=== PATIENT | male | born 1955 | race Caucasian/White ===

== ENCOUNTER → 2018-09-27 | Outpatient (CLI) | payer MEDICAID ==
[2018-09-27 11:57] LABS: CLARITY,URINE CLEAR; COLOR,URINE YELLOW; GLUCOSE, URINE (UA) NEGATIVE (NEGATIVE); PH,URINE 5.5 (5-9); PROTEIN,URINE NEGATIVE (NEGATIVE)
[2018-09-27 11:58] LABS: BACTERIA,URINE NEGATIVE /HPF; BILIRUBIN,URINE NEGATIVE (NEGATIVE); KETONES,URINE NEGATIVE (NEGATIVE); LEUKOCYTE ESTERASE ,URINE NEGATIVE (NEGATIVE); NITRITE,URINE NEGATIVE (NEGATIVE); RBC,URINE RARE /HPF; SQUAMOUS EPITHELIAL CELL,UR RARE /HPF; UROBILINOGEN,URINE 0.2 MG/DL (NORMAL)
[2018-09-27 15:21] LABS: BUN/CREATININE RATIO 12; CALCIUM 8.8 MG/DL (8.5-10.1); CARBON DIOXIDE 27 MMOL/L (21-32); CHLORIDE 100 MMOL/L (98-107); GFR ESTIMATED > 60; GLUCOSE 114 MG/DL (70-105); POTASSIUM 4.1 MMOL/L (3.6-5.0); SODIUM 135 MMOL/L (135-145)
== END ==
LOC: LAB FS 09:41
PROVIDERS: ATTEND Urology
DX: N40.0 Benign prostatic hyperplasia without lower urinary tract symptoms (principal)
CPT/HCPCS: 36415; 80048; 81000; 84153; 84403

== ENCOUNTER 2018-10-18 11:04 | Emergency (ER) | payer MEDICAID ==
[~2018-10-18] VITALS: Ht 177.8 cm; Wt 88.5 kg
--- OUTSIDE RECORDS SUMMARY | 2018-10-18 11:09 | XMS REPORT | Continuity of Care Document ---
Author Organization Unknown Address Unknown Phone Unavailable Allergies Active Description Code Type Severity Reaction Onset Reported/Identified Relationship to Patient Clinical Status Yes NO KNOWN DRUG ALLERGIES UNKNOWN NO KNOWN DRUG ALLERG Medications Medication Packaging Start Date Stop Date Route Dosage Sig NORMAL SALINE 1000CC IV BAG INJ 0.9 % (NS 1000CC IV BAG) ml 09/22/2016 10/07/2016 CONTINUOUSEVERY 0 Hour CEFAZOLIN VIAL INJ 1 GM (ANCEF) GM 09/22/2016 09/22/2016 ONCE&0730 HYDRALAZINE 1CC VIAL INJ 20 MG/CC (APRESOLINE 1CC VIAL) MG 09/22/2016 09/22/2016 ONCE&0735 HYDROCODONE/APAP 7.5/325 TAB (JERSON-TAB 7.5/325) TAB 09/22/2016 09/22/2016 PRN ONCE Problems Date Dx Coded Attending Type Code Diagnosis Diagnosed By 09/22/2016 ALAYNA BRIGGS 717.3 OTHER AND UNSPECIFIED DERANGEMENT OF MEDIAL MENISCUS 09/22/2016 ALAYNA BRIGGS 717.40 DERANGEMENT OF LATERAL MENISCUS, UNSPECIFIED 09/22/2016 ALAYNA BRIGGS 727.00 SYNOVITIS AND TENOSYNOVITIS, UNSPECIFIED 09/22/2016 ALAYNA BRIGGS M23.201 DERANGEMENT OF UNSP LAT MENSC DUE TO OLD TEAR/INJ, LEFT KNEE 09/22/2016 ALAYNA BRIGGS M23.204 DERANG OF UNSP MEDIAL MENISCUS DUE TO OLD TEAR/INJ, L KNEE 09/22/2016 ALAYNA BRIGGS M65.9 SYNOVITIS AND TENOSYNOVITIS, UNSPECIFIED Procedures There is no data. Results There is no data. Encounters ACCT No. Visit Date/Time Discharge Status Pt. Type Provider Facility Loc./Unit Complaint [id number] 07/04/2018 09:45:00 07/04/2018 23:59:00 DIS Outpatient ALAYNA BRIGGS [id number] 09/22/2016 00:00:00 09/22/2016 09:25:00 DIS Outpatient ALAYNA BRIGGS [id number] 08/11/2016 00:00:00 08/11/2016 00:00:00 CAN Outpatient ALAYNA BRIGGS [id number] 09/22/2016 07:08:23 Document Registration
[2018-10-18] MEDS ORDERED: NS IV 1000 ML 1,000 ML IV SCH (11:17)
[2018-10-18 11:38] LABS: HEMATOCRIT 41 % (40-54); HEMOGLOBIN 14.1 G/DL (13.3-17.7); MEAN CORPUSCULAR HEMOGLOBIN 29 PG (25-34); MEAN CORPUSCULAR HGB CONC 35 G/DL (32-36); MEAN CORPUSCULAR VOLUME 85 FL (80-99); MEAN PLATELET VOLUME 8.8 FL (7.4-10.4); NEUTROPHILS % (AUTO) 68 % (42-75); PLATELET COUNT 216 10^3/uL (130-400); RED CELL DISTRIBUTION WIDTH 13.9 % (10.0-14.5); WHITE BLOOD COUNT 5.9 10^3/uL (4.3-11.0)
[2018-10-18 11:39] LABS: BASOPHILS # (AUTO) 0.1 10^3/uL (0.0-0.1); BASOPHILS % (AUTO) 1 % (0-10); EOSINOPHILS # (AUTO) 0.4 10^3/uL (0.0-0.3); EOSINOPHILS % (AUTO) 7 % (0-10); LYMPHOCYTES % (AUTO) 17 % (12-44); MONOCYTES # (AUTO) 0.4 X 10^3 (0.0-1.0); MONOCYTES % (AUTO) 7 % (0-12)
[2018-10-18 11:56] LABS: ALANINE AMINOTRANSFERASE 15 U/L (0-55); ALBUMIN 4.1 GM/DL (3.2-4.5); ALKALINE PHOSPHATASE 130 U/L (40-136); BILIRUBIN,TOTAL 0.2 MG/DL (0.1-1.0); BUN/CREATININE RATIO 10; CALCIUM 9.1 MG/DL (8.5-10.1); CARBON DIOXIDE 29 MMOL/L (21-32); CHLORIDE 94 MMOL/L (98-107); CREATININE SERUM 0.89 MG/DL (0.60-1.30); GFR ESTIMATED > 60; GLUCOSE 150 MG/DL (70-105); SODIUM 134 MMOL/L (135-145); TOTAL PROTEIN 7.8 GM/DL (6.4-8.2)
[2018-10-18 11:59] LABS: BILIRUBIN,URINE NEGATIVE (NEGATIVE); CLARITY,URINE CLEAR; COLOR,URINE YELLOW; GLUCOSE, URINE (UA) NEGATIVE (NEGATIVE); KETONES,URINE NEGATIVE (NEGATIVE); LEUKOCYTE ESTERASE ,URINE NEGATIVE (NEGATIVE); NITRITE,URINE NEGATIVE (NEGATIVE); PH,URINE 6.5 (5-9); PROTEIN,URINE NEGATIVE (NEGATIVE); RBC,URINE 0-2 /HPF; SQUAMOUS EPITHELIAL CELL,UR RARE /HPF; UROBILINOGEN,URINE 0.2 MG/DL (NORMAL)
--- NOTE | 2018-10-18 12:23 | ED General ---
General Chief Complaint: Dizziness/Syncope Stated Complaint: DIZZINESS; BP 151/101; FALL Nursing Triage Note: REPORTS HE HAS BEEN DIZZY OFF AND ON THE LAST FEW DAYS. NO CHANGES IN MEDICATIONS. DIZZINESS OCCURS MAINLY WHEN HE STANDS UP. Nursing Sepsis Screen: No Definite Risk History of Present Illness Date Seen by Provider: Oct 18, 2018 Time Seen by Provider: 11:15 Initial Comments 63-year-old male presents with "dizziness" that he describes as feeling off balance for the last few days. He reports it's worse when he stands up. Reports a couple falls. He does not describe the room spinning or him spinning. He denies any other focal weakness. He denies any medication changes, chest pain, shortness of breath, vision changes. Patient did not have a urinary symptoms, abdominal pain, fevers or chills. Allergies and Home Medications Allergies Coded Allergies: sulfamethoxazole (Verified Allergy, Unknown, 10/18/18) trimethoprim (Verified Allergy, Unknown, 10/18/18) Patient Home Medication List Home Medication List Reviewed: Yes Review of Systems Review of Systems Constitutional: No chills; dizziness; No fever, No weakness EENTM: no symptoms reported Respiratory: No cough; short of breath Cardiovascular: No chest pain, No edema, No palpitations Gastrointestinal: no symptoms reported; No abdominal pain, No diarrhea, No nausea, No vomiting Genitourinary: no symptoms reported Musculoskeletal: no symptoms reported Skin: no symptoms reported Past Uwztwby-Yjdggs-Uieevq Hx Past Med/Social Hx: Reviewed Nursing Past Med/Soc Hx Patient Social History Alcohol Use: Denies Use Recreational Drug Use: No 2nd Hand Smoke Exposure: No Recent Foreign Travel: No Contact w/Someone Who Travel: No Recent Infectious Disease Expo: No Recent Hopitalizations: No Physical Abuse: No Sexual Abuse: No Mistreated: No Fear: No Seasonal Allergies Seasonal Allergies: No Physical Exam Vital Signs Vital Signs - First Documented 10/18/18 11:32 Temp 97.1 Pulse 85 Resp 20 B/P (MAP) 150/88 (108) Pulse Ox 97 O2 Delivery Room Air Capillary Refill : Less Than 3 Seconds Height, Weight, BMI Height: 5'10.00" Weight: 195lbs. oz. 88.452420wl; BMI Method:Stated General Appearance: No Apparent Distress, WD/WN Eyes: Bilateral Eye Normal Inspection, Bilateral Eye PERRL HEENT: TMs Normal, Normal ENT Inspection Neck: Non Tender Respiratory: Chest Non Tender, Lungs Clear, Normal Breath Sounds Cardiovascular: Regular Rate, Rhythm, No Edema Gastrointestinal: Normal Bowel Sounds, Non Tender, Soft Back: Normal Inspection Extremity: Normal Capillary Refill, Normal Inspection Neurologic/Psychiatric: Oriented x3, No Motor/Sensory Deficits, Normal Mood/Affect, angle furnaceman II-XII Norm as Tested Skin: Normal Color, Warm/Dry Progress/Results/Core Measures Suspected Sepsis Recent Fever Within 48 Hours: No Infection Criteria Present: None New/Unexplained Altered Menta: No Sepsis Screen: No Definite Risk SIRS Temperature:97.1 Pulse: 85 Respiratory Rate: 20 Laboratory Tests 10/18/18 11:27: White Blood Count 5.9 Blood Pressure 150 /88 Mean: 108 Laboratory Tests 10/18/18 11:27: Creatinine 0.89, Platelet Count 216, Total Bilirubin 0.2 Results/Orders Lab Results Laboratory Tests Test 10/18/18 11:27 10/18/18 11:48 Range/Units White Blood Count 5.9 4.3-11.0 10^3/uL Red Blood Count 4.78 4.35-5.85 10^6/uL Hemoglobin 14.1 13.3-17.7 G/DL Hematocrit 41 40-54 % Mean Corpuscular Volume 85 80-99 FL Mean Corpuscular Hemoglobin 29 25-34 PG Mean Corpuscular Hemoglobin Concent 35 32-36 G/DL Red Cell Distribution Width 13.9 10.0-14.5 % Platelet Count 216 130-400 10^3/uL Mean Platelet Volume 8.8 7.4-10.4 FL Neutrophils (%) (Auto) 68 42-75 % Lymphocytes (%) (Auto) 17 12-44 % Monocytes (%) (Auto) 7 0-12 % Eosinophils (%) (Auto) 7 0-10 % Basophils (%) (Auto) 1 0-10 % Neutrophils # (Auto) 4.0 1.8-7.8 X 10^3 Lymphocytes # (Auto) 1.0 1.0-4.0 X 10^3 Monocytes # (Auto) 0.4 0.0-1.0 X 10^3 Eosinophils # (Auto) 0.4 H 0.0-0.3 10^3/uL Basophils # (Auto) 0.1 0.0-0.1 10^3/uL Sodium Level 134 L 135-145 MMOL/L Potassium Level 4.0 3.6-5.0 MMOL/L Chloride Level 94 L 98-107 MMOL/L Carbon Dioxide Level 29 21-32 MMOL/L Anion Gap 11 5-14 MMOL/L Blood Urea Nitrogen 9 7-18 MG/DL Creatinine 0.89 0.60-1.30 MG/DL Estimat Glomerular Filtration Rate > 60 BUN/Creatinine Ratio 10 Glucose Level 150 H 70-105 MG/DL Glucometer 139 H 70-110 MG/DL Calcium Level 9.1 8.5-10.1 MG/DL Corrected Calcium 9.0 8.5-10.1 MG/DL Total Bilirubin 0.2 0.1-1.0 MG/DL Aspartate Amino Transf (AST/SGOT) 20 5-34 U/L Alanine Aminotransferase (ALT/SGPT) 15 0-55 U/L Alkaline Phosphatase 130 40-136 U/L Troponin I < 0.30 <0.30 NG/ML Total Protein 7.8 6.4-8.2 GM/DL Albumin 4.1 3.2-4.5 GM/DL Serum Alcohol < 10 <10 MG/DL Urine Color YELLOW Urine Clarity CLEAR Urine pH 6.5 5-9 Urine Specific [place] <1.005 1.016-1.022 Urine Protein NEGATIVE NEGATIVE Urine Glucose (UA) NEGATIVE NEGATIVE Urine Ketones NEGATIVE NEGATIVE Urine Nitrite NEGATIVE NEGATIVE Urine Bilirubin NEGATIVE NEGATIVE Urine Urobilinogen 0.2 NORMAL MG/DL Urine Leukocyte Esterase NEGATIVE NEGATIVE Urine RBC (Auto) TRACE H NEGATIVE Urine RBC 0-2 /HPF Urine WBC NONE /HPF Urine Squamous Epithelial Cells RARE /HPF Urine Crystals NONE /LPF Urine Bacteria NONE /HPF Urine Casts NONE /LPF Urine Mucus NEGATIVE /LPF Urine Culture Indicated NO My Orders Orders - EDMONDS,GRISEL L DO Ct Head Wo (10/18/18 11:17) Accucheck Stat ONCE (10/18/18 11:17) Ed Iv/Invasive Line Start (10/18/18 11:17) Ekg Tracing (10/18/18 11:17) Alcohol (10/18/18 11:17) Cbc With Automated Diff (10/18/18 11:17) Comprehensive Metabolic Panel (10/18/18 11:17) Lactic Acid Analyzer (10/18/18 11:17) Troponin I (10/18/18 11:17) Ua Culture If Indicated (10/18/18 11:17) Ed Iv/Invasive Line Start (10/18/18 11:17) Ns Iv 1000 Ml (Sodium Chloride 0.9%) (10/18/18 11:17) Vital Signs/I&O 10/18/18 11:32 Temp 97.1 Pulse 85 Resp 20 B/P (MAP) 150/88 (108) Pulse Ox 97 O2 Delivery Room Air Capillary Refill : Less Than 3 Seconds Blood Pressure Mean: 108 Point of Care Testing Finger Stick Blood Glucose: 139 Progress Note : Progress Note Patient with no acute findings on labs or CT. Patient was able to get up without difficulty with no signs of acute dizziness while here in the ER. Recommend patient follow up with his primary care physician for medication review and if symptoms continue possible MRI. Patient to be discharged home in stable condition. ECG Initial ECG Impression Date: Oct 18, 2018 Initial ECG Impression Time: 11:16 Initial ECG Rhythm: Normal Sinus Initial ECG Impression: Nonspecific Changes Comment Normal sinus rhythm, nonspecific T-wave changes no acute abnormality Diagnostic Imaging Diagonstic Imaging: CT Plain Films/CT/US/NM/MRI: head Reviewed: Reviewed/Discussed Departure Impression Primary Impression: Dizziness Disposition: 01 HOME, SELF-CARE Condition: Stable Departure-Patient Inst. Referrals: ROEL MCQUEEN DO (PCP/Family) Primary Care Physician Patient Instructions: Dizziness, Nonvertigo, (DC) GRISEL EDMONDS DO Oct 18, 2018 12:23
--- NOTE | 2018-10-18 12:23 | Diagnostic Imaging Report ---
PROCEDURE: CT head without contrast. TECHNIQUE: Multiple contiguous axial images were obtained through the brain without the use of intravenous contrast. Auto Exposure Controls were utilized during the CT exam to meet ALARA standards for radiation dose reduction. INDICATION: Dizziness and frequent falls. TIME OF EXAM: 12:04 p.m. COMPARISON: No prior studies available for comparison. FINDINGS: Ventricles and sulci are within normal limits. There is mild periventricular hypodensity noted consistent with chronic microvascular ischemia. No sulcal effacement is seen. There is no midline shift or hemorrhage identified. Cisterns are patent. Visualized paranasal sinuses are clear. IMPRESSION: Chronic changes. No acute intracranial process is detected. Dictated by: Dictated on workstation # [id number]
[2018-10-18 12:49] VITALS: BP 154/89
== END 2018-10-18 12:49 | disposition home or self-care (01) ==
LOC: EDUNIT# 11:04 → ER FS 11:05
DX: R42 Dizziness and giddiness (principal); Z88.2 Allergy status to sulfonamides; Z88.1 Allergy status to other antibiotic agents
CPT/HCPCS: 70450; 80053; 80320; 81000; 82962; 84484; 93005; 96360

== ENCOUNTER 2018-10-19 12:40 | Emergency (ER) | payer MEDICAID ==
[~2018-10-19] VITALS: Ht 177.8 cm; Wt 88.5 kg
--- OUTSIDE RECORDS SUMMARY | 2018-10-19 12:55 | XMS REPORT | Continuity of Care Document ---
[...] Status Pt. Type Provider Facility Loc./Unit Complaint [id number] 07/04/2018 09:45:00 07/04/2018 23:59:00 DIS Outpatient ALAYNA BRIGGS [id number] 09/22/2016 00:00:00 09/22/2016 09:25:00 DIS Outpatient ALAYNA BRIGGS [id number] 08/11/2016 00:00:00 08/11/2016 00:00:00 CAN Outpatient ALAYNA BRIGGS [id number] 09/22/2016 07:08:23 Document Registration
[2018-10-19 13:15] VITALS: BP_SYST 142; BP_SYST 148; BP_SYST 151; BP_DIAS 85; BP_DIAS 90; BP_DIAS 91
[2018-10-19 14:45] LABS: HEMATOCRIT 39 % (40-54); HEMOGLOBIN 13.5 G/DL (13.3-17.7); LYMPHOCYTES % (AUTO) 18 % (12-44); MEAN CORPUSCULAR HEMOGLOBIN 29 PG (25-34); MEAN CORPUSCULAR HGB CONC 34 G/DL (32-36); MEAN CORPUSCULAR VOLUME 85 FL (80-99); MEAN PLATELET VOLUME 9.1 FL (7.4-10.4); NEUTROPHILS % (AUTO) 69 % (42-75); PLATELET COUNT 239 10^3/uL (130-400); WHITE BLOOD COUNT 6.8 10^3/uL (4.3-11.0)
[2018-10-19 14:46] LABS: BASOPHILS # (AUTO) 0.1 10^3/uL (0.0-0.1); BASOPHILS % (AUTO) 1 % (0-10); EOSINOPHILS # (AUTO) 0.4 10^3/uL (0.0-0.3); EOSINOPHILS % (AUTO) 6 % (0-10); LYMPHOCYTES # (AUTO) 1.2 X 10^3 (1.0-4.0); MONOCYTES # (AUTO) 0.4 X 10^3 (0.0-1.0); MONOCYTES % (AUTO) 6 % (0-12); NEUTROPHILS # (AUTO) 4.7 X 10^3 (1.8-7.8)
[2018-10-19 14:50] LABS: CHLORIDE 91 MMOL/L (98-107); POTASSIUM 4.3 MMOL/L (3.6-5.0); SODIUM 132 MMOL/L (135-145)
[2018-10-19 14:51] LABS: ALANINE AMINOTRANSFERASE 15 U/L (0-55); ALKALINE PHOSPHATASE 131 U/L (40-136); BILIRUBIN,TOTAL 0.3 MG/DL (0.1-1.0); BUN/CREATININE RATIO 11; CALCIUM 8.8 MG/DL (8.5-10.1); CARBON DIOXIDE 26 MMOL/L (21-32); CREATININE SERUM 0.87 MG/DL (0.60-1.30); GFR ESTIMATED > 60; GLUCOSE 178 MG/DL (70-105); TOTAL PROTEIN 7.5 GM/DL (6.4-8.2)
[2018-10-19 14:54] LABS: CLARITY,URINE CLEAR; COLOR,URINE YELLOW; GLUCOSE, URINE (UA) NEGATIVE (NEGATIVE); KETONES,URINE NEGATIVE (NEGATIVE); NITRITE,URINE NEGATIVE (NEGATIVE); PROTEIN,URINE NEGATIVE (NEGATIVE)
[2018-10-19 14:55] LABS: BILIRUBIN,URINE NEGATIVE (NEGATIVE); LEUKOCYTE ESTERASE ,URINE NEGATIVE (NEGATIVE); SQUAMOUS EPITHELIAL CELL,UR 0-2 /HPF; UROBILINOGEN,URINE 0.2 MG/DL (NORMAL)
--- NOTE | 2018-10-19 15:00 | ED General ---
General Chief Complaint: Dizziness/Syncope Stated Complaint: DIZZINESS Nursing Triage Note: Patient brought in via EMS with c/o dizziness. States that it started about 1 hour after he took his medications. Nursing Sepsis Screen: No Definite Risk Source of Information: Patient Exam Limitations: No Limitations History of Present Illness Date Seen by Provider: Oct 19, 2018 Time Seen by Provider: 14:55 Initial Comments The patient is a 63-year-old white male who was here yesterday with similar complaints. He reports that when he tries to stand up he feels very lightheaded and wobbly. He has fallen twice. He takes an extensive list of medications. Given these it is inferred that he has a severe systolic cardiomyopathy. Of particular interest he takes ENTresto plus losartan. In addition he takes carvedilol 6.25 mg twice a day furosemide 40 mg daily spironolactone 25 mg daily. He reports that shortly after taking his medications the symptoms increase. Timing/Duration: 3-4 Days Severity: Mild, Moderate Associated Systoms: Syncope, Weakness Allergies and Home Medications Allergies Coded Allergies: sulfamethoxazole (Verified Allergy, Unknown, 10/18/18) trimethoprim (Verified Allergy, Unknown, 10/18/18) Patient Home Medication List Home Medication List Reviewed: Yes Review of Systems Review of Systems Constitutional: see HPI Respiratory: no symptoms reported Cardiovascular: edema Gastrointestinal: no symptoms reported Genitourinary: no symptoms reported Musculoskeletal: no symptoms reported Skin: no symptoms reported Psychiatric/Neurological: No Symptoms Reported Hematologic/Lymphatic: No Symptoms Reported Immunological/Allergic: no symptoms reported Past Vjuczcc-Gbloch-Vvckvv Hx Patient Social History Alcohol Use: Denies Use Recreational Drug Use: No Smoking Status: Never a Smoker 2nd Hand Smoke Exposure: No Recent Foreign Travel: No Contact w/Someone Who Travel: No Recent Infectious Disease Expo: No Recent Hopitalizations: No Physical Abuse: No Sexual Abuse: No Mistreated: No Fear: No Seasonal Allergies Seasonal Allergies: No Past Medical History Surgeries: Yes (Hernia repair, ) Respiratory: No Cardiac: Yes (CHF) High Cholesterol, Hypertension Neurological: Yes Neuropathy, Seizure Disorder Genitourinary: Yes Benign Prostatic Hyperpl Gastrointestinal: Yes Gastroesophageal Reflux Musculoskeletal: No Endocrine: Yes Diabetes, Non-Insulin dep HEENT: No Cancer: No Psychosocial: No Integumentary: No Blood Disorders: No Physical Exam Vital Signs Vital Signs - First Documented 10/19/18 12:50 Temp 97.0 Pulse 61 Resp 18 B/P (MAP) 148/95 (112) Pulse Ox 100 O2 Delivery Room Air Capillary Refill : Less Than 3 Seconds Height, Weight, BMI Height: 5'10.00" Weight: 195lbs. oz. 88.292553zp; BMI Method:Stated General Appearance: Mild Distress Eyes: Bilateral Eye Normal Inspection HEENT: Normal ENT Inspection Neck: Full Range of Motion, Normal Inspection Respiratory: Chest Non Tender, Lungs Clear, Normal Breath Sounds, No Accessory Muscle Use, No Respiratory Distress Cardiovascular: Regular Rate, Rhythm, No Edema, No Gallop, No JVD, No Murmur, Normal Peripheral Pulses Gastrointestinal: Normal Bowel Sounds, No Organomegaly, No Pulsatile Mass, Non Tender, Soft Extremity: Normal Capillary Refill, Normal Inspection, Normal Range of Motion, Non Tender, No Calf Tenderness, No Pedal Edema Neurologic/Psychiatric: Alert, Oriented x3, No Motor/Sensory Deficits, Normal Mood/Affect Skin: Normal Color, Warm/Dry Lymphatic: No Adenopathy Progress/Results/Core Measures Suspected Sepsis Recent Fever Within 48 Hours: No Infection Criteria Present: None New/Unexplained Altered Menta: No Sepsis Screen: No Definite Risk SIRS Temperature:97.0 Pulse: 61 Respiratory Rate: 18 Laboratory Tests 10/19/18 14:10: White Blood Count 6.8 Blood Pressure 151 /90 Mean: 110 Laboratory Tests 10/19/18 13:10: Creatinine 0.87, Total Bilirubin 0.3 10/19/18 14:10: Platelet Count 239 Results/Orders Lab Results Laboratory Tests Test 10/19/18 13:10 10/19/18 14:10 Range/Units Urine Color YELLOW Urine Clarity CLEAR Urine pH 6.0 5-9 Urine Specific [place] 1.010 L 1.016-1.022 Urine Protein NEGATIVE NEGATIVE Urine Glucose (UA) NEGATIVE NEGATIVE Urine Ketones NEGATIVE NEGATIVE Urine Nitrite NEGATIVE NEGATIVE Urine Bilirubin NEGATIVE NEGATIVE Urine Urobilinogen 0.2 NORMAL MG/DL Urine Leukocyte Esterase NEGATIVE NEGATIVE Urine RBC (Auto) TRACE H NEGATIVE Urine RBC NONE /HPF Urine WBC NONE /HPF Urine Squamous Epithelial Cells 0-2 /HPF Urine Crystals NONE /LPF Urine Bacteria NONE /HPF Urine Casts NONE /LPF Urine Mucus NEGATIVE /LPF Urine Culture Indicated NO Sodium Level 132 L 135-145 MMOL/L Potassium Level 4.3 3.6-5.0 MMOL/L Chloride Level 91 L 98-107 MMOL/L Carbon Dioxide Level 26 21-32 MMOL/L Anion Gap 15 H 5-14 MMOL/L Blood Urea Nitrogen 10 7-18 MG/DL Creatinine 0.87 0.60-1.30 MG/DL Estimat Glomerular Filtration Rate > 60 BUN/Creatinine Ratio 11 Glucose Level 178 H 70-105 MG/DL Calcium Level 8.8 8.5-10.1 MG/DL Corrected Calcium 8.8 8.5-10.1 MG/DL Total Bilirubin 0.3 0.1-1.0 MG/DL Aspartate Amino Transf (AST/SGOT) 19 5-34 U/L Alanine Aminotransferase (ALT/SGPT) 15 0-55 U/L Alkaline Phosphatase 131 40-136 U/L Total Protein 7.5 6.4-8.2 GM/DL Albumin 4.0 3.2-4.5 GM/DL White Blood Count 6.8 4.3-11.0 10^3/uL Red Blood Count 4.62 4.35-5.85 10^6/uL Hemoglobin 13.5 13.3-17.7 G/DL Hematocrit 39 L 40-54 % Mean Corpuscular Volume 85 80-99 FL Mean Corpuscular Hemoglobin 29 25-34 PG Mean Corpuscular Hemoglobin Concent 34 32-36 G/DL Red Cell Distribution Width 14.0 10.0-14.5 % Platelet Count 239 130-400 10^3/uL Mean Platelet Volume 9.1 7.4-10.4 FL Neutrophils (%) (Auto) 69 42-75 % Lymphocytes (%) (Auto) 18 12-44 % Monocytes (%) (Auto) 6 0-12 % Eosinophils (%) (Auto) 6 0-10 % Basophils (%) (Auto) 1 0-10 % Neutrophils # (Auto) 4.7 1.8-7.8 X 10^3 Lymphocytes # (Auto) 1.2 1.0-4.0 X 10^3 Monocytes # (Auto) 0.4 0.0-1.0 X 10^3 Eosinophils # (Auto) 0.4 H 0.0-0.3 10^3/uL Basophils # (Auto) 0.1 0.0-0.1 10^3/uL My Orders Orders - EDISON MACKENZIE MD Cbc With Automated Diff (10/19/18 14:26) Comprehensive Metabolic Panel (10/19/18 14:26) Urinalysis (10/19/18 14:26) Vital Signs/I&O 10/19/18 10/19/18 12:50 13:15 Temp 97.0 Pulse 61 Resp 18 B/P (MAP) 148/95 (112) 142/85 (104) 148/91 (110) 151/90 (110) Pulse Ox 100 O2 Delivery Room Air Capillary Refill : Less Than 3 Seconds Blood Pressure Mean: 110 Departure Communication (Admissions) His extensive list of her medications was examined. Of interest with regard to his complaints, it is noted that he is taking interest of plus losartan. Therefore the losartan will be discontinued. In addition he takes carvedilol and it will also be discontinued Impression Primary Impression: medication-related syncope Disposition: 01 HOME, SELF-CARE Condition: Stable/Unchanged Departure-Patient Inst. Decision time for Depature: 15:40 Referrals: ROEL MCQUEEN DO (PCP/Family) Primary Care Physician Patient Instructions: Syncope (Fainting) (DC) Add. Discharge Instructions: All discharge instructions reviewed with patient and/or family. Voiced understanding. Stop losartan. Stop carvedilol. Limit activities for the next 48 hours. See your physician as soon as possible to report symptoms and further scrutinized your medication list EDISON MACKENZIE MD Oct 19, 2018 15:00
[2018-10-19 15:59] VITALS: BP 113/90
== END 2018-10-19 15:59 | disposition home or self-care (01) ==
LOC: EDUNIT# 12:40 → ER FS 12:51
DX: R55 Syncope and collapse (principal); I11.0 Hypertensive heart disease with heart failure; I50.9 Heart failure, unspecified; E11.9 Type 2 diabetes mellitus without complications; E78.00 Pure hypercholesterolemia, unspecified; G40.909 Epilepsy, unspecified, not intractable, without status epilepticus; G62.9 Polyneuropathy, unspecified; K21.9 Gastro-esophageal reflux disease without esophagitis; Z88.1 Allergy status to other antibiotic agents; Z88.2 Allergy status to sulfonamides
CPT/HCPCS: 36415; 80053; 81000; 85025

== ENCOUNTER → 2018-12-13 | Outpatient (CLI) | payer MEDICAID ==
--- NOTE | 2018-12-13 18:11 | Diagnostic Imaging Report ---
INDICATION: Fall. Left shoulder pain. FINDINGS: Three views. There are no fractures or dislocation. Glenohumeral joint shows smooth articulation. Joint space well preserved. The AC joint shows good alignment with moderate hypertrophic change. The surrounding soft tissues appear normal without evidence of calcification. IMPRESSION: Moderate degenerative changes of the AC joint. Glenohumeral joint appears normal. Dictated by: Dictated on workstation # [id number]
== END ==
LOC: RAD FS 17:50
PROVIDERS: ATTEND Emergency Medicine
DX: M19.012 Primary osteoarthritis, left shoulder (principal); W19.XXXA Unspecified fall, initial encounter
CPT/HCPCS: 73030

== ENCOUNTER 2019-04-17 12:00 | Outpatient (CLI) | payer MEDICAID ==
[~2019-04-17] VITALS: Ht 177.8 cm; Wt 88.2 kg
[2019-04-17 12:12] VITALS: BP 135/78
[2019-04-17] MEDS ORDERED: ISOS30TA3 PO (14:14)
[2019-04-17] MEDS ORDERED: METF-399 PO (14:14)
[2019-04-17] MEDS ORDERED: SPIR25TA5 PO (14:14)
[2019-04-17] MEDS ORDERED: LORA10TA7 PO (14:14)
[2019-04-17] MEDS ORDERED: FURO40TA4 PO (14:14)
[2019-04-17] MEDS ORDERED: MAGN400T7 PO (14:14)
[2019-04-17] MEDS ORDERED: SACU1TAB2 PO (14:14)
[2019-04-17] MEDS ORDERED: ATOR80TA76 PO (14:14)
[2019-04-17] MEDS ORDERED: CYCL10TA9 PO (14:14)
[2019-04-17] MEDS ORDERED: ASPI-586 PO (14:14)
[2019-04-17] MEDS ORDERED: POTA10TA36 PO (14:14)
[2019-04-17] MEDS ORDERED: TMSL.4C PO (14:14)
[2019-04-17] MEDS ORDERED: PHEN100C11 PO ×2 (14:14)
[2019-04-17] MEDS ORDERED: OMEP40CA27 PO (14:14)
[2019-04-17] MEDS ORDERED: GBPN600T PO (14:14)
== END 2019-04-17 12:30 | disposition home or self-care (01) ==
LOC: PREOP 12:00
PROVIDERS: ATTEND Orthopaedic Surgery
DX: Z01.818 Encounter for other preprocedural examination (principal)
CPT/HCPCS: 87081

== ENCOUNTER 2019-04-24 08:35 | Day surgery (SDC) | payer MEDICAID ==
--- NOTE | 2019-04-08 11:31 | HISTORY AND PHYSICAL ---
DATE OF SERVICE: This will be for outpatient surgery on 04/24/2019 for left shoulder rotator cuff repair. HISTORY OF PRESENT ILLNESS: The patient is a 63-year-old right-hand dominant gentleman with complaints of progressively worsening left shoulder pain and weakness. He reports that this has been ongoing to the point which is interfering with his activities of daily living. An MRI revealed a supraspinatus tear. Due to functional impairment and failure to improve with conservative measures, the patient elected to proceed with surgical intervention. He has tried home exercise program as well as activity modifications. REVIEW OF SYSTEMS: No chest pain, no shortness of breath, no dysuria. PAST MEDICAL HISTORY: Congestive heart failure, dyspnea, anxiety, mitral valve disorder, tricuspid valve disease, pulmonary hypertension, insomnia, osteoarthritis, grand mal seizures, hyperlipidemia, hypertension, and diabetes. PAST SURGICAL HISTORY: Herniorrhaphy, coronary catheterization. FAMILY HISTORY: Chronic obstructive pulmonary disease. PRIMARY CARE PROVIDER: Dr. Green. MEDICATIONS: Flomax, spironolactone, phenytoin, Glucophage, isosorbide, Neurontin, furosemide, cyclobenzaprine, vitamin D, tramadol, atorvastatin, aspirin, doxycycline, Claritin, omeprazole, potassium, magnesium and Entresto. ALLERGIES: No known drug allergies. SOCIAL HISTORY: The patient denies alcohol or tobacco use. PHYSICAL EXAMINATION: GENERAL: The patient is well-developed, well-nourished, in no acute distress. HEENT: Normocephalic, atraumatic. Pupils are equal, round, reactive to light. Oropharynx is clear. NECK: Supple, no lymphadenopathy. LUNGS: Clear to auscultation bilaterally. HEART: Regular rate and rhythm. ABDOMEN: Soft, nontender, nondistended. EXTREMITIES: The left shoulder demonstrates weakness with abduction and external rotation, active forward elevation 90 degrees, external rotation 40 degrees, internal rotation to his beltline. He has full passive forward elevation, external and internal rotation. IMPRESSION: Large left rotator cuff tear. PLAN: Left shoulder arthroscopy with open rotator cuff repair. Risks, benefits, options, ramifications and recovery were discussed at length with the patient. He understands and wishes to proceed. Job ID: [id number] DocumentID: [id number] Dictated Date: 04/08/2019 09:31:09 Bioinformatics Associate Date: 04/08/2019 11:30:27 Dictated By: KB BLANCAS MD
[~2019-04-24] VITALS: Ht 177.8 cm; Wt 88.2 kg
[2019-04-24] VITALS (11 sets, daily range): BP systolic 108–157; BP diastolic 83–107
[~2019-04-24 08:35] MED LIST: ASPI-586 PO; ATOR80TA76 PO; CYCL10TA9 PO; FURO40TA4 PO; GBPN600T PO; ISOS30TA3 PO; LORA10TA7 PO; MAGN400T7 PO; METF-399 PO; OMEP40CA27 PO; PHEN100C11 PO; POTA10TA36 PO; SACU1TAB2 PO; SPIR25TA5 PO; TMSL.4C PO; oxyCODONE/APAP 5/325MG (PERCOCET 5) TABLET PO PRN
[2019-04-24] MEDS ORDERED: ceFAZolin INJECTION 1,000 MG in WATER (STERILE) FOR INJECTION 10 ML IV ONE (09:00)
[2019-04-24] MEDS ORDERED: BUPIVACAINE 0.25% 30 ML (SENSORCAINE) VIAL ONE (09:04)
[2019-04-24] MEDS ORDERED: morphine PF (DURAMORPH) 10 MG/10 ML AMP ONE (09:04)
--- NOTE | 2019-04-24 09:05 | Progress Note-Pre Operative ---
Pre-Operative Progress Note H&P Reviewed The H&P was reviewed, patient examined and no changes noted. Date Seen by Provider: Apr 24, 2019 Time Seen by Provider: 09:05 Date H&P Reviewed: Apr 24, 2019 Time H&P Reviewed: 09:05 Pre-Operative Diagnosis: left rotator cuff tear KB BLACNAS MD Apr 24, 2019 09:05
--- NOTE | 2019-04-24 09:07 | Progress Note-Post Operative ---
Post-Operative Progess Note Surgeon (s)/Hat Finisher (s) Surgeon KB BLANCAS MD Hat Finisher: Jean Marie Ramires Pre-Operative Diagnosis left rotator cuff tear Post-Operative Diagnosis left rotator cuff tear Procedure & Operative Findings Date of Procedure 04/24/19 Procedure Performed/Findings left shoulder srthroscopic acromioplasty and open rotator cuff repair Anesthesia Type GETA Estimated Blood Loss Estimated blood loss (mL): minimal Specimens/Packing Specimens Removed none Packing: none KB BLANCAS MD Apr 24, 2019 09:07
[2019-04-24] MEDS ORDERED: ROPIVACAINE 5MG/ML 30ML VIAL ONE (09:22)
[2019-04-24] MEDS ORDERED: SEVOFLURANE (ULTANE) 15 ML INHAL SOLN ONE ×2 (09:22→10:48)
[2019-04-24] MEDS ORDERED: LIDOCAINE PF 2% 5 ML (XYLOCAINE) VIAL ONE (09:22)
[2019-04-24] MEDS ORDERED: fentaNYL INJECTION 100 MCG/2 ML AMP ONE (09:22)
[2019-04-24] MEDS ORDERED: proPOfol 200 MG/20 ML (DIPRIVAN) VIAL IV ONE (09:22)
[2019-04-24] MEDS ORDERED: MIDAZOLAM 2 MG/2 ML (VERSED) VIAL ONE (09:23)
[2019-04-24] MEDS: LACTATED RINGERS 1,000 ML IV PRN ×2 (09:25→10:25)
[2019-04-24] MEDS ORDERED: ONDANSETRON 4 MG/2 ML (SDV) Z0FRAN ONE ×2 (10:48→11:25)
[2019-04-24] MEDS ORDERED: GLYCOPYRROLATE 0.2 MG/ML (ROBINUL) 2 ML VIAL ONE (10:48)
[2019-04-24] MEDS ORDERED: NEOSTIGMINE 3 MG/3 ML VIAL ONE (10:48)
[2019-04-24] MEDS ORDERED: ROCURONIUM 10 MG/ML 5 ML SYRINGE IV ONE (10:49)
[2019-04-24] MEDS ORDERED: morphine INJ 10 MG/ML 1ML (SYR OR VIAL) ONE (11:08)
[2019-04-24] MEDS ORDERED: HYDROmorphone 2 MG/ML VIAL (DILAUDID) ONE (11:08)
[2019-04-24] MEDS ORDERED: morphine INJ 10 MG/ML 1ML (SYR OR VIAL) IVP ONE (11:15)
[2019-04-24] MEDS ORDERED: ONDANSETRON 4 MG/2 ML (SDV) Z0FRAN IVP PRN (11:15)
[2019-04-24] MEDS ORDERED: HYDROmorphone 2 MG/ML VIAL (DILAUDID) IV ONE (11:15)
--- NOTE | 2019-04-24 12:11 | Anesthesia-General Post-Op ---
General Patient Condition Mental Status/LOC: Same as Preop Cardiovascular: Satisfactory Nausea/Vomiting: Absent Respiratory: Satisfactory Pain: Controlled Complications: Absent Post Op Complications Complications None Follow Up Care/Instructions Patient Instructions None needed. Anesthesia/Patient Condition Patient Condition Patient is doing well, no complaints, stable vital signs, no apparent adverse anesthesia problems. SABRA CARVER DO Apr 24, 2019 12:11
--- NOTE | 2019-04-24 12:30 | NUR ---
TO AMB SURG FROM PAR PER CART. RATES LEFT SHOULDER PAIN 5. TAPED GAUZE AND ABD DRESSING D/I TO LEFT SHOULDER, ICE PACK ON, SLING ON LEFT ARM. ABLE TO MOVE HAND AND FINGERS FREELY. HAS +SENSATION LEFT ARM/HAND. CAP REFILL <3 SECONDS, SKIN WARM AND PINK. PO FLUIDS AND CRACKERS PROVIDED. BED LOW, LOCKED, RAILS UP X2. CALL LIGHT TO PT AND FAMILY AT SIDE.
--- NOTE | 2019-04-24 12:46 | NUR ---
TAKING PO FLUIDS AND CRACKERS WITHOUT PROBLEM. PERCOCET 5/325 MG, ONE TAB, GIVEN PO.
[2019-04-24] MEDS ORDERED: OXYC-471 PO (13:13)
--- NOTE | 2019-04-24 13:38 | NUR ---
HAS BEEN RESTING QUIETLY, OCCASIONALLY DROWSY, BUT WAKENS EASILY TO CONVERSATION. RATES LEFT SHOULDER PAIN 2. NO CHANGE IN CMS OR SITE ASSESSMENTS. C/O NAUSEA. ZOFRAN 4 MG GIVEN IV PER ORDER.
[2019-04-24] MEDS ORDERED: ONDANSETRON 4 MG/2 ML (SDV) Z0FRAN IVP ONE (13:45)
--- NOTE | 2019-04-24 14:10 | NUR ---
REPORTS NAUSEA IS EASING. ASSISTED WITH DRESSING FOR HOME. NO EMESIS. READY FOR DISMISSAL.
--- NOTE | 2019-04-24 15:54 | OPERATIVE REPORT ---
DATE OF SERVICE: 04/24/2019 PREOPERATIVE DIAGNOSIS: Left rotator cuff tear. POSTOPERATIVE DIAGNOSIS; Left rotator cuff tear. PROCEDURES: 1. Left shoulder open rotator cuff repair. 2. Left shoulder arthroscopic acromioplasty. SURGEON: Iván Blancas MD COMPUTER NETWORKER: KEYLA Mcleod, who assisted throughout the procedure and closed the incision. ANESTHESIA: General endotracheal plus interscalene nerve block as per my request for postoperative pain management. ESTIMATED BLOOD LOSS: Minimal. DRAINS: None. COMPLICATIONS: None. POSTOPERATIVE PLAN: Sling wear and passive range of motion for 4 weeks. The patient was transferred to the recovery room in awake and stable condition. STATEMENT OF MEDICAL NECESSITY: The patient is a 63-year-old right hand dominant gentleman with complaints of left shoulder pain and weakness. An MRI revealed a full-thickness supraspinatus tear. He tried rest, activity modifications, anti-inflammatories without relief. Due to functional impairment and failure to improve with conservative measures, the patient elected to proceed with surgical intervention. Examination under anesthesia revealed range of motion of forward elevation of 170 degrees, external rotation of 80 degrees and internal rotation of 70 degrees. Arthroscopic findings demonstrated a full thickness supraspinatus tear with retraction approximately 3 cm. The biceps anchor was intact. The labrum was intact. The glenoid, humeral head demonstrated no gross chondral abnormalities. Subacromial space demonstrated slope in the anterolateral acromion with thickened bursal tissue. DESCRIPTION OF PROCEDURE: After risks and benefits of procedure were discussed and questions were answered, informed consent was signed and placed on chart, the operative site was confirmed in the preoperative holding area initialed by the surgeon. The patient was transferred to the operating room. After adequate levels of regional plus general endotracheal anesthetic were obtained, a timeout was called, confirming the operative site. Examination under anesthesia was performed with above findings noted. Left upper extremity and shoulder were prepped and draped in the usual sterile fashion. Shoulder joint was injected with 20 mL fluid. A posterior portal was placed and diagnostic arthroscopy was carried out with the above findings noted. The scope was redirected in the subacromial space. Lateral portal was created and the acromion was planed to a flat type 1 acromion. A bursectomy was performed as well. The lateral portal was then extended. The deltoid was split in line with its fibers leaving attached to the acromion. The rotator cuff tear was mobilized and brought to a bleeding bony bed using a single corkscrew anchor in a modified [place]-Giles repair. A good repair was obtained. Wound was copiously irrigated. The deltoid was repaired in [id number] fashion using #2 FiberWire. The wound was further irrigated, 3-0 Vicryl was used to reapproximate subcutaneous tissue and skin was closed with 4-0 nylon in running alternating horizontal mattress fashion. A soft dressing and sling were applied. The patient was transferred to the recovery room awake and in stable condition. Job ID: [id number] DocumentID: [id number] Dictated Date: 04/24/2019 11:02:08 Press Maintainer Date: 04/24/2019 15:54:00 Dictated By: IVÁN BLANCAS MD
== END 2019-04-24 14:10 | disposition home or self-care (01) ==
LOC: SDC 08:35
PROVIDERS: ATTEND Orthopaedic Surgery
DX: M75.122 Complete rotator cuff tear or rupture of left shoulder, not specified as traumatic (principal); I11.0 Hypertensive heart disease with heart failure; I50.9 Heart failure, unspecified; F41.9 Anxiety disorder, unspecified; I08.1 Rheumatic disorders of both mitral and tricuspid valves; I27.20 Pulmonary hypertension, unspecified; G47.00 Insomnia, unspecified; M19.90 Unspecified osteoarthritis, unspecified site; G40.909 Epilepsy, unspecified, not intractable, without status epilepticus; E78.5 Hyperlipidemia, unspecified; J44.9 Chronic obstructive pulmonary disease, unspecified; E11.42 Type 2 diabetes mellitus with diabetic polyneuropathy; K21.9 Gastro-esophageal reflux disease without esophagitis; N40.0 Benign prostatic hyperplasia without lower urinary tract symptoms; Z79.82 Long term (current) use of aspirin; Z79.1 Long term (current) use of non-steroidal anti-inflammatories (NSAID); Z88.1 Allergy status to other antibiotic agents; Z79.84 Long term (current) use of oral hypoglycemic drugs; Z79.899 Other long term (current) drug therapy; Z79.891 Long term (current) use of opiate analgesic
CPT/HCPCS: 82962

== ENCOUNTER 2019-04-27 15:30 | Emergency (ER) | payer MEDICAID ==
[~2019-04-27] VITALS: Ht 172 cm; Wt 86.8 kg
[~2019-04-27 15:30] MED LIST changes: +OXYC-471 PO; -oxyCODONE/APAP 5/325MG (PERCOCET 5) TABLET PO PRN
--- NOTE | 2019-04-27 16:23 | ED Abdominal Pain ---
General Chief Complaint: Abdominal/GI Problems Stated Complaint: STOMACH PAIN Nursing Triage Note: Had shoulder surgery 3 days ago and has had some abdomial pain and cramping since then. Has also not had a bowel movement. Is currently rating stomach pain at 8/10 and is located in suprapubic region. Sepsis Screen: No Definite Risk History of Present Illness Date Seen by Provider: Apr 27, 2019 Time Seen by Provider: 15:55 Initial Comments Here with abdominal pain generalized no bowel movement since before the surgery had a shoulder surgery was on OxyContin for a few days but has not been on that for the last couple days urine is been passing well although not as much because he is not drinking as much Timing/Duration: 12 Hours Severity/Quality: Moderate Location: Generalized Abdomen Radiation: No Radiation Activities at Onset: Activity Modifying Factors: Improves With Eating, Improves With Movement Associated Symptoms: No Fever/Chills; Fatigue; No Nausea/Vomiting Allergies and Home Medications Allergies Coded Allergies: sulfamethoxazole (Verified Allergy, Unknown, 10/18/18) trimethoprim (Verified Allergy, Unknown, 10/18/18) Home Medications Aspirin 81 Mg Tablet.dr, 81 MG PO DAILY, (Reported) Atorvastatin Calcium 80 Mg Tablet, 80 MG PO HS, (Reported) Cyclobenzaprine HCl 10 Mg Tablet, 10 MG PO TID PRN for MUSCLE SPASMS, (Reported) Furosemide 40 Mg Tablet, 40 MG PO DAILY, (Reported) Gabapentin 600 Mg Tablet, 600 MG PO BID, (Reported) Isosorbide Mononitrate 30 Mg Tab.er.24h, 30 MG PO DAILY, (Reported) Loratadine 10 Mg Tablet, 10 MG PO DAILY, (Reported) Magnesium Oxide 400 Mg Tablet, 400 MG PO DAILY, (Reported) Metformin HCl 1,000 Mg Tablet, 1,000 MG PO BID, (Reported) Omeprazole 40 Mg Capsule.dr, 40 MG PO DAILY, (Reported) Oxycodone HCl/Acetaminophen 1 Each Tablet, 1 EACH PO Q4H PRN for PAIN-SEVERE Prescribed by: IGLESIA HERNÁNDEZ on 04/24/19 1313 Phenytoin Sodium Extended 100 Mg Capsule, 100 MG PO DAILY, (Reported) Phenytoin Sodium Extended 100 Mg Capsule, 200 MG PO HS, (Reported) TAKE 2 (100MG) TABS Potassium Chloride 10 Meq Tab.er.prt, 10 MEQ PO DAILY, (Reported) Sacubitril/Valsartan 1 Each Tablet, 1 TAB PO BID, (Reported) Spironolactone 25 Mg Tablet, 25 MG PO DAILY, (Reported) Tamsulosin HCl 0.4 Mg Cap, 0.4 MG PO DAILY, (Reported) Patient Home Medication List Home Medication List Reviewed: Yes Review of Systems Review of Systems Constitutional: No chills, No dizziness, No malaise EENTM: No Ear Pain, No Throat Pain Respiratory: Denies Cough, Denies Shortness of Air Cardiovascular: Denies Chest Pain, Denies Palpitations Gastrointestinal: Abdominal Pain, Constipated; Denies Diarrhea, Denies Nausea; Poor Appetite; Denies Vomiting Genitourinary: Denies Frequency, Denies Flank Pain, Denies Hematuria Musculoskeletal: No joint pain, No muscle pain Skin: No lesions, No rash Psychiatric/Neurological: Denies Headache, Denies Numbness, Denies Tingling Past Ymmflsa-Losmbd-Dntgju Hx Past Med/Social Hx: Reviewed Nursing Past Med/Soc Hx Patient Social History 2nd Hand Smoke Exposure: No Recent Foreign Travel: No Contact w/Someone Who Travel: No Recent Infectious Disease Expo: No Recent Hopitalizations: No Seasonal Allergies Seasonal Allergies: No Past Medical History Surgeries: Yes (Hernia repair, knee scope x2, ) Respiratory: No Currently Using CPAP: No Currently Using BIPAP: No Cardiac: Yes (CHF) High Cholesterol, Hypertension Neurological: Yes Neuropathy, Seizure Disorder Genitourinary: Yes Benign Prostatic Hyperpl Gastrointestinal: Yes Gastroesophageal Reflux Musculoskeletal: Yes (knee pain, L shoulder) Arthritis Endocrine: Yes Diabetes, Non-Insulin dep HEENT: No Cancer: No Psychosocial: No Integumentary: No Blood Disorders: No Physical Exam Vital Signs Vital Signs - First Documented 04/27/19 15:54 Temp 36.9 Pulse 94 Resp 16 B/P (MAP) 141/98 (112) Pulse Ox 97 Capillary Refill : Less Than 3 Seconds Height/Weight/BMI Height: 5'10.00" Weight: 195lbs. oz. 88.465319wo; 29.00 BMI Method:Stated General Appearance: WD/WN, moderate distress HEENT: PERRL/EOMI, TMs normal, pharynx normal Neck: full range of motion, normal inspection Respiratory: lungs clear, no respiratory distress Cardiovascular: regular rate, rhythm, no murmur Gastrointestinal: normal bowel sounds, soft, abnormal bowel sounds, distended, tenderness, other (tympanitic distended abdomen tenderness in all areas) Extremities: normal range of motion, normal inspection Back: normal inspection, no CVA tenderness Neurologic/Psychiatric: diaphragm builder II-XII nml as tested, normal mood/affect, oriented x 3 Skin: normal color, warm/dry Progress/Results/Core Measures Results/Orders Lab Results Laboratory Tests Test 04/27/19 16:30 04/27/19 16:44 Range/Units White Blood Count 9.3 4.3-11.0 10^3/uL Red Blood Count 4.97 4.35-5.85 10^6/uL Hemoglobin 13.9 13.3-17.7 G/DL Hematocrit 40 40-54 % Mean Corpuscular Volume 80 80-99 FL Mean Corpuscular Hemoglobin 28 25-34 PG Mean Corpuscular Hemoglobin Concent 35 32-36 G/DL Red Cell Distribution Width 15.0 H 10.0-14.5 % Platelet Count 234 130-400 10^3/uL Mean Platelet Volume 8.9 7.4-10.4 FL Neutrophils (%) (Auto) 83 H 42-75 % Lymphocytes (%) (Auto) 8 L 12-44 % Monocytes (%) (Auto) 8 0-12 % Eosinophils (%) (Auto) 1 0-10 % Basophils (%) (Auto) 0 0-10 % Neutrophils # (Auto) 7.7 1.8-7.8 X 10^3 Lymphocytes # (Auto) 0.8 L 1.0-4.0 X 10^3 Monocytes # (Auto) 0.8 0.0-1.0 X 10^3 Eosinophils # (Auto) 0.1 0.0-0.3 10^3/uL Basophils # (Auto) 0.0 0.0-0.1 10^3/uL Neutrophils % (Manual) 83 % Lymphocytes % (Manual) 7 % Monocytes % (Manual) 7 % Eosinophils % (Manual) 0 % Basophils % (Manual) 0 % Band Neutrophils 3 % Blood Morphology Comment NORMAL Sodium Level 135 135-145 MMOL/L Potassium Level 3.6 3.6-5.0 MMOL/L Chloride Level 95 L 98-107 MMOL/L Carbon Dioxide Level 26 21-32 MMOL/L Anion Gap 14 5-14 MMOL/L Blood Urea Nitrogen 9 7-18 MG/DL Creatinine 0.86 0.60-1.30 MG/DL Estimat Glomerular Filtration Rate > 60 BUN/Creatinine Ratio 10 Glucose Level 184 H 70-105 MG/DL Calcium Level 8.8 8.5-10.1 MG/DL Corrected Calcium 9.2 8.5-10.1 MG/DL Total Bilirubin 0.5 0.1-1.0 MG/DL Aspartate Amino Transf (AST/SGOT) 16 5-34 U/L Alanine Aminotransferase (ALT/SGPT) 13 0-55 U/L Alkaline Phosphatase 96 40-136 U/L Total Protein 7.1 6.4-8.2 GM/DL Albumin 3.5 3.2-4.5 GM/DL Urine Color SASKIA H Urine Clarity CLEAR Urine pH 6.0 5-9 Urine Specific [place] 1.025 H 1.016-1.022 Urine Protein 1+ H NEGATIVE Urine Glucose (UA) 1+ H NEGATIVE Urine Ketones NEGATIVE NEGATIVE Urine Nitrite NEGATIVE NEGATIVE Urine Bilirubin NEGATIVE NEGATIVE Urine Urobilinogen 0.2 < = 1.0 MG/DL Urine Leukocyte Esterase NEGATIVE NEGATIVE Urine RBC (Auto) 1+ H NEGATIVE Urine RBC RARE /HPF Urine WBC RARE /HPF Urine Squamous Epithelial Cells RARE /HPF Urine Crystals NONE /LPF Urine Bacteria NEGATIVE /HPF Urine Casts NONE /LPF Urine Mucus SMALL H /LPF Urine Culture Indicated NO My Orders Orders - ELENO TORRES JR, MD Cbc And Manual Diff (04/27/19 16:19) Comprehensive Metabolic Panel (04/27/19 16:19) Ua Culture If Indicated (04/27/19 16:19) Ct Abdomen/Pelvis W (04/27/19 16:19) Iohexol Injection (Omnipaque 350 Mg/Ml 1 (04/27/19 17:30) Received Contrast (Hold Metformin- Contr (04/27/19 17:30) Sodium Chloride Flush (Catheter Flush Sy (04/27/19 17:30) Ns (Ivpb) (Sodium Chloride 0.9% Ivpb Bag (04/27/19 17:30) Medications Given in ED Current Medications Medications Dose Ordered Sig/Christine Route Start Time Stop Time Status Last Admin Dose Admin Iohexol 100 ml ONCE ONCE IV 04/27/19 17:30 04/27/19 17:31 UNV 04/27/19 17:39 100 ML Sodium Chloride 10 ml NEEDED PRN IV 04/27/19 17:30 UNV 04/27/19 17:39 10 ML Sodium Chloride 100 ml ONCE ONCE IV 04/27/19 17:30 04/27/19 17:31 UNV 04/27/19 17:39 80 ML Vital Signs/I&O 04/27/19 15:54 Temp 36.9 Pulse 94 Resp 16 B/P (MAP) 141/98 (112) Pulse Ox 97 Blood Pressure Mean: 112 Progress Progress Note : Time: 18:12 Progress Note Discussed regarding CT results do feel like is most likely constipation do the surgery and pain meds however can't exclude ileus or some additional bowel inflammation. Use MiraLAX and follow will stay on clear liquids and see how he does if things are not going well we will have him come back for IV use and potential admission. Departure Impression Primary Impression: Constipation Qualified Codes: K59.00 - Constipation, unspecified Disposition: HOME, SELF-CARE Condition: Stable Departure-Patient Inst. Referrals: ROEL MCQUEEN DO (PCP/Family) Primary Care Physician Patient Instructions: Constipation, Adult (DC) Add. Discharge Instructions: Sound clear liquids. Use MiraLAX tonight and in the morning. May buy [facility] etc. Return if repetitive vomiting or if abdominal pain becomes a problem. Also do not take metformin for the next 48 hours. See PCP first of the week depending on how you're doing return for any problems All discharge instructions reviewed with patient and/or family. Voiced understanding. ELENO TORRES JR, MD Apr 27, 2019 16:23
[2019-04-27 16:44] LABS: HEMATOCRIT 40 % (40-54); HEMOGLOBIN 13.9 G/DL (13.3-17.7); MEAN CORPUSCULAR HEMOGLOBIN 28 PG (25-34); MEAN CORPUSCULAR VOLUME 80 FL (80-99); WHITE BLOOD COUNT 9.3 10^3/uL (4.3-11.0)
[2019-04-27 16:45] LABS: BASOPHILS % (AUTO) 0 % (0-10); EOSINOPHILS # (AUTO) 0.1 10^3/uL (0.0-0.3); EOSINOPHILS % (AUTO) 1 % (0-10); LYMPHOCYTES # (AUTO) 0.8 X 10^3 (1.0-4.0); LYMPHOCYTES % (AUTO) 8 % (12-44); MEAN CORPUSCULAR HGB CONC 35 G/DL (32-36); MEAN PLATELET VOLUME 8.9 FL (7.4-10.4); MONOCYTES # (AUTO) 0.8 X 10^3 (0.0-1.0); MONOCYTES % (AUTO) 8 % (0-12); NEUTROPHILS # (AUTO) 7.7 X 10^3 (1.8-7.8); NEUTROPHILS % (AUTO) 83 % (42-75); PLATELET COUNT 234 10^3/uL (130-400)
[2019-04-27 17:14] LABS: CARBON DIOXIDE 26 MMOL/L (21-32); CHLORIDE 95 MMOL/L (98-107); POTASSIUM 3.6 MMOL/L (3.6-5.0); SODIUM 135 MMOL/L (135-145)
[2019-04-27 17:15] LABS: ALANINE AMINOTRANSFERASE 13 U/L (0-55); ALBUMIN 3.5 GM/DL (3.2-4.5); ALKALINE PHOSPHATASE 96 U/L (40-136); BILIRUBIN,TOTAL 0.5 MG/DL (0.1-1.0); BUN/CREATININE RATIO 10; CALCIUM 8.8 MG/DL (8.5-10.1); CREATININE SERUM 0.86 MG/DL (0.60-1.30); GFR ESTIMATED > 60; GLUCOSE 184 MG/DL (70-105); TOTAL PROTEIN 7.1 GM/DL (6.4-8.2)
[2019-04-27 17:21] LABS: CLARITY,URINE CLEAR; COLOR,URINE AMBER
[2019-04-27 17:22] LABS: BACTERIA,URINE NEGATIVE /HPF; BILIRUBIN,URINE NEGATIVE (NEGATIVE); GLUCOSE, URINE (UA) 1+ (NEGATIVE); KETONES,URINE NEGATIVE (NEGATIVE); LEUKOCYTE ESTERASE ,URINE NEGATIVE (NEGATIVE); NITRITE,URINE NEGATIVE (NEGATIVE); PROTEIN,URINE 1+ (NEGATIVE); RBC,URINE RARE /HPF; SQUAMOUS EPITHELIAL CELL,UR RARE /HPF; WBC,URINE RARE /HPF
[2019-04-27] MEDS ORDERED: IOHEXOL 350 MG/ML 100 ML (OMNIPAQUE 350) VIAL IV ONE (17:30)
[2019-04-27] MEDS ORDERED: HOLD METFORMIN - RECEIVED CONTRAST 20 ML VIAL IV SCH (17:30)
[2019-04-27] MEDS ORDERED: CATHETER FLUSH 10 ML SYR IV PRN (17:30)
[2019-04-27] MEDS ORDERED: NS 100 ML (IVPB) BAG IV ONE (17:30)
[2019-04-27 17:49] LABS: BAND NEUTROPHILS 3 %; BASOPHILS % (MANUAL) 0 %; EOSINOPHILS % (MANUAL) 0 %; LYMPHOCYTES % (MANUAL) 7 %; MONOCYTES % (MANUAL) 7 %; NEUTROPHILS % (MANUAL) 83 %
[2019-04-27 17:50] LABS: RBC MORPH NORMAL
--- NOTE | 2019-04-27 18:05 | Diagnostic Imaging Report ---
CT ABDOMEN/PELVIS W PROCEDURE: CT abdomen and pelvis with contrast. TECHNIQUE: Multiple contiguous axial images were obtained through the abdomen and pelvis after administration of intravenous contrast. All CT scans use one or more of the following dose optimizing techniques: automated exposure control, MA and/or KvP adjustment based on patient size and exam type or iterative reconstruction. INDICATION: Abdominal pain and cramping. COMPARISON: None. FINDINGS: There is mild right basilar atelectasis. There is low-density throughout the liver indicating steatosis. No focal hepatic abnormalities identified. There is distention of the gallbladder without evidence of gallbladder wall thickening or pericholecystic fluid. There is no evidence of pancreatic, adrenal gland or renal abnormality. Spleen has a normal appearance. There is no evidence of free fluid although there is mild edema and/or inflammation in the left paracolic gutter. There is diffuse distention of the colon with fluid and stool as well as gas. This extends from the cecum to the level of the sigmoid colon. The rectum is decompressed. There is no evidence of organized fluid collection. No bladder abnormality is identified. No focal right lower quadrant inflammation is seen. IMPRESSION: Fluid distention of colon from cecum to sigmoid colon compatible with ileus or possible colitis. No definite obstructing lesion is identified. However, there is edema and/or inflammation in the paracolic gutters, greater on the left. Dictated by: Dictated on workstation # [id number]
[2019-04-27 18:25] VITALS: BP 175/95
== END 2019-04-27 18:25 | disposition home or self-care (01) ==
LOC: EDUNIT# 15:30 → ER FS 15:31
DX: K59.00 Constipation, unspecified (principal); I10 Essential (primary) hypertension; E78.00 Pure hypercholesterolemia, unspecified; E11.40 Type 2 diabetes mellitus with diabetic neuropathy, unspecified; K21.9 Gastro-esophageal reflux disease without esophagitis; G40.909 Epilepsy, unspecified, not intractable, without status epilepticus; Z88.2 Allergy status to sulfonamides; Z88.1 Allergy status to other antibiotic agents; Z79.82 Long term (current) use of aspirin; Z79.84 Long term (current) use of oral hypoglycemic drugs
CPT/HCPCS: 36415; 74177; 80053; 81000; 85007; 85027

== ENCOUNTER → 2020-10-29 | Outpatient (CLI) | payer MEDICAID ==
[~2020-10-29] MED LIST changes: -ISOS30TA3 PO; +ISOS30TA82 PO; -OMEP40CA27 PO; +OMEP40CA6 PO; -OXYC-471 PO; +OXYC1TAB11 PO
== END ==
LOC: IHC 12:12
PROVIDERS: ATTEND Internal Medicine Critical Care Medicine
DX: R94.4 Abnormal results of kidney function studies (principal)
CPT/HCPCS: 83735

== ENCOUNTER → 2020-11-19 | Outpatient (CLI) | payer MEDICAID ==
[2020-11-19 09:10] LABS: ALBUMIN 3.4 GM/DL (3.2-4.5); CALCIUM 8.4 MG/DL (8.5-10.1); CREATININE SERUM 1.14 MG/DL (0.60-1.30); POTASSIUM 5.2 MMOL/L (3.6-5.0)
[2020-11-19 12:34] LABS: PHOSPHORUS 1.8 MG/DL (2.3-4.7)
== END ==
LOC: IHC 08:19
PROVIDERS: ATTEND Internal Medicine Critical Care Medicine
DX: I11.0 Hypertensive heart disease with heart failure (principal); I50.9 Heart failure, unspecified
CPT/HCPCS: 80069

== ENCOUNTER → 2021-02-18 | Outpatient (CLI) | payer MEDICAID ==
[~2021-02-18] MED LIST changes: +CYCL10TA25 PO; -CYCL10TA9 PO; -POTA10TA36 PO; +POTA10TA37 PO
--- NOTE | 2021-02-18 12:03 | Diagnostic Imaging Report ---
INDICATION: Bilateral claudication. Segmental brachial index. FINDINGS: The ankle-brachial indices were performed. The right lower extremity shows ankle-brachial indices of 1.0 in the posterior tibial and 1.1 in the dorsalis pedis. The left lower extremity shows ankle brachial indices of 1.1 in the posterior tibial and 1.08 in the dorsalis pedis. IMPRESSION: Ankle-brachial indices are within normal limits measuring 1.13 on the right and 1.12 on the left. Dictated by: Dictated on workstation # [id number]
== END ==
LOC: RAD 10:45
PROVIDERS: ATTEND Emergency Medicine
DX: L03.116 Cellulitis of left lower limb (principal); I70.25 Atherosclerosis of native arteries of other extremities with ulceration; E11.69 Type 2 diabetes mellitus with other specified complication
CPT/HCPCS: 93922